=== PATIENT | female | born 1960 | race Caucasian/White ===

== ENCOUNTER 2017-03-26 12:35 | Inpatient (IN) | payer MEDICARE ==
[~2017-03-26] VITALS: Ht 175.3 cm; Wt 83.9 kg
[~2017-03-26 12:35] MED LIST: TOPROL XL 25 MG25 MG PO
[2017-03-26 19:56] LABS: HEMOGLOBIN 15.6 gm/dl (12.3-15.3); RED BLOOD COUNT 4.72 M/UL (4.00-5.10); WHITE BLOOD COUNT 7.3 K/UL (4.5-11.0)
[2017-03-26 20:19] LABS: BUN/CREATININE RATIO 11 (0-10)
[2017-03-27] MEDS ORDERED: LIPITOR TAB 2020 MG PO (03:48)
[2017-03-27] MEDS ORDERED: KLONOPIN TAB 00.5 MG PO (03:48)
[2017-03-27] MEDS ORDERED: ZOLOFT100 MG PO (03:49)
[2017-03-27] MEDS ORDERED: NEURONTIN 300300 MG PO (03:49)
[2017-03-27] MEDS ORDERED: FENTANYL 0100 MCG/2 TOP (03:58)
[2017-03-27] MEDS ORDERED: LORTAB 7.5-3251 EACH PO (03:59)
[2017-03-27] MEDS ORDERED: CLARITIN 10MG T10 MG PO (04:00)
[2017-03-28 05:42] LABS: HEMOGLOBIN 13.8 gm/dl (12.3-15.3); RED BLOOD COUNT 4.42 M/UL (4.00-5.10); WHITE BLOOD COUNT 6.4 K/UL (4.5-11.0)
[2017-03-28 06:00] LABS: BUN/CREATININE RATIO 17 (0-10)
[2017-03-28] MEDS ORDERED: LEVAQUIN750 MG PO (13:04)
[2017-03-28] MEDS ORDERED: IPRAT-ALBUT 0.5-3 ML INH (13:13)
== END 2017-03-28 15:19 | disposition home or self-care (01) | DRG 189 ==
LOC: ER1 12:35 → M/S 03-27 01:08 → ZEROF 03-27 01:08 → M/S 03-27 02:34
PROVIDERS: Emergency Medicine; Internal Medicine; ADMIT Internal Medicine
DX: J96.01 Acute respiratory failure with hypoxia (principal); J18.9 Pneumonia, unspecified organism; J44.0 Chronic obstructive pulmonary disease with (acute) lower respiratory infection; J44.1 Chronic obstructive pulmonary disease with (acute) exacerbation; J90 Pleural effusion, not elsewhere classified; I10 Essential (primary) hypertension; M79.652 Pain in left thigh; R59.9 Enlarged lymph nodes, unspecified; F32.9 Major depressive disorder, single episode, unspecified; F41.9 Anxiety disorder, unspecified; F17.200 Nicotine dependence, unspecified, uncomplicated; Z86.718 Personal history of other venous thrombosis and embolism; Z79.891 Long term (current) use of opiate analgesic; Z79.899 Other long term (current) drug therapy; Z80.7 Family history of other malignant neoplasms of lymphoid, hematopoietic and related tissues
CPT/HCPCS: 36415; 80048; 80053; 83605; 83735; 85025; 85027; 85379; 85610; 85730; 93005; 93971; 94640; 94664; 99285; J0456; J0696; J1650; J2060; J7030; J7050; Q0162; Q9963